=== PATIENT | female | born 1975 | race Caucasian/White ===

== ENCOUNTER 2020-06-15 09:07 | Emergency (ER) | payer MEDICARE, MEDICAID | END 2020-06-15 11:04 | disposition home or self-care (01) | LOC: ERS 09:07 | DX: M25.571 Pain in right ankle and joints of right foot (principal); I10 Essential (primary) hypertension; F17.210 Nicotine dependence, cigarettes, uncomplicated; Z79.899 Other long term (current) drug therapy ==